=== PATIENT | female | born 1960 | race Caucasian/White ===

== ENCOUNTER 2019-08-31 10:57 | Emergency (ER) | payer OTHER ==
[~2019-08-31] VITALS: Ht 167.6 cm; Wt 79.4 kg
[2019-08-31] MEDS ORDERED: Zantac150 MG PO (11:57)
[2019-08-31 12:11] LABS: BASOPHILS ABSOLUTE AUTO 0.07 K/mm3 (0.00-0.23); BASOPHILS PERCENT AUTO 1 % (0-2); EOSINOPHILS ABSOLUTE AUTO 0.12 K/mm3 (0.00-0.68); EOSINOPHILS PERCENT AUTO 1 % (0-6); Hematocrit 40.1 % (33.0-51.0); IMMATURE GRAN ABSOLUTE AUTO 0.05 K/mm3 (0.00-0.10); IMMATURE GRAN PERCENT AUTO 0 % (0-1); LYMPHOCYTES ABSOLUTE AUTO 1.15 K/mm3 (0.84-5.20); LYMPHOCYTES PERCENT AUTO 9 % (21-46); MONOCYTES ABSOLUTE AUTO 1.48 K/mm3 (0.16-1.47); MONOCYTES PERCENT AUTO 11 % (4-13); Mean Corpuscular HGB 29.5 pg (26.0-34.0); Mean Corpuscular HGB Conc 32.4 g/dL (31.5-36.5); Mean Corpuscular Volume 91 fL (80-100); Mean Platelet Volume 9.7 fL (9.1-12.4); NEUTROPHILS ABSOLUTE AUTO 10.12 K/mm3 (1.96-9.15); NEUTROPHILS PERCENT AUTO 78 % (41-73); Platelet Count 307 K/mm3 (150-400); RDW Coefficient Variation 12.6 % (11.7-14.2); Red Blood Cell Count 4.41 M/mm3 (3.80-5.20); White Blood Cell Count 12.99 K/mm3 (4.00-11.30)
[2019-08-31 12:26] LABS: International Normalized Ratio 1.08; Prothrombin Time Results 11.4 Sec (9.7-11.5)
[2019-08-31 12:34] LABS: Albumin, Blood 3.5 g/dL (3.4-5.0); Albumin/Globulin Ratio 0.8 (0.8-1.8); Bun/Creatinine Ratio 18.1 (12.0-20.0); Calcium, Blood 9.5 mg/dL (8.5-10.1); Creatinine, Blood 1.16 mg/dL (0.40-1.00); Globulin, Blood 4.6 g/dL (2.2-4.0); Potassium, Blood 3.8 mmol/L (3.5-5.5); Total Protein, Blood 8.1 g/dL (6.4-8.2)
[2019-08-31 13:48] LABS: Source, Urine Clean Catch
[2019-08-31 13:56] LABS: Blood, Urine 4+ (Neg); Glucose Qualitative, Urine Neg (Neg); Ketones, Urine 1+ (Neg); Leukocyte Esterase, Urine 1+ (Neg); Nitrite, Urine Pos (Neg); Protein, Urine 2+ (Neg); Specific Gravity, Urine 1.015 (1.003-1.022); Urobilinogen, Urine 2+ (Normal); pH, Urine 6.5 (5.0-8.0)
[2019-08-31 14:17] LABS: Appearance, Urine Clear (Clear); Bilirubin, Urine 2+ (Neg); Color, Urine Yellow (P-Yellow)
[2019-08-31 14:18] LABS: Bacteria Mod /hpf; Mucus Light (0-Heavy); Squamous Epithelial Cells Few /hpf (Few)
== END 2019-08-31 15:30 | disposition short-term general hospital (02) ==
LOC: ER 10:57
PROVIDERS: Emergency Medicine
DX: K85.10 Biliary acute pancreatitis without necrosis or infection (principal); K80.60 Calculus of gallbladder and bile duct with cholecystitis, unspecified, without obstruction; Z79.899 Other long term (current) drug therapy
CPT/HCPCS: 36415; 76705; 80053; 81001; 83690; 85025; 85610; 87086; 93005; 93010; 96360; 96361; 99285-25; J7030

== ENCOUNTER → 2022-09-24 | Outpatient (CLI) | payer OTHER ==
[~2022-09-24] MED LIST: Zantac150 MG PO
[2022-09-25 15:11] LABS: HPV 16 Negative (Negative); HPV 18 Negative (Negative); HPV OTHER HR TYPES Negative (Negative)
== END ==
LOC: LAB SHORT 09:32 → LAB 09:32
PROVIDERS: Family Medicine
DX: Z01.419 Encounter for gynecological examination (general) (routine) without abnormal findings (principal)
CPT/HCPCS: 87624; G0123